=== PATIENT | male | born 1970 ===

== ENCOUNTER 2020-11-26 12:57 | Outpatient (CLI) | payer MEDICAID ==
[~2020-11-26] VITALS: Ht 172.7 cm; Wt 99.8 kg
[2020-11-26 13:10] VITALS: BP 142/87
[2020-11-26] MEDS ORDERED: XANAX0.5 MG ORAL (13:13)
--- NOTE | 2020-11-26 16:44 | Consultation ---
DATE OF CONSULTATION: 11/26/2020 CHIEF COMPLAINT: Referral for colonoscopy. HISTORY OF PRESENT ILLNESS: This is a 50-year-old male who had colon polyps few years ago which was abnormal according to him. He was told to have another colonoscopy in two years. 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 PAST MEDICAL HISTORY: Colonic polyps. PAST SURGICAL HISTORY: None. MEDICATIONS: Xanax. FAMILY HISTORY: Father had colon cancer at age 67. SOCIAL HISTORY: The patient occasionally drinks, smokes, but denies any IV drug abuse. ALLERGIES: No known drug allergies. REVIEW OF SYSTEMS: Positive for on and off abdominal pain. PHYSICAL EXAMINATION: GENERAL: The patient is well developed male. VITAL SIGNS: Temperature 97.2, blood pressure 142/87, pulse 81, respirations 20. HEENT: Normocephalic and atraumatic. Sclerae anicteric. NECK: Supple. No evidence of obvious lymphadenopathy. CARDIOVASCULAR: Regular rate and rhythm. Plus S1, S2. LUNGS: Clear to auscultation bilaterally. ABDOMEN: Positive bowel sounds. Soft and nontender. No rebound. No guarding. No peritoneal sign. EXTREMITIES: No cyanosis, no clubbing, no edema. ASSESSMENT AND PLAN: This is a 50-year-old male with history of abnormal colonic polyps in the colonoscopy few years ago, needs repeat colonoscopy. The patient was given instruction for colonoscopy. Risks and benefits of procedure was explained to him in detail. We will schedule him when authorization is obtained. Bobby Qiu M.D. DR: Ricky JOB#: [id number] CC:
== END 2020-11-26 14:57 | disposition home or self-care (01) ==
LOC: PAN 12:57
DX: R10.9 Unspecified abdominal pain (principal); Z86.010 Personal history of colon polyps; Z80.0 Family history of malignant neoplasm of digestive organs
CPT/HCPCS: 99203